=== PATIENT | male | born 1980 | race African-American/Black ===

== ENCOUNTER 2016-12-28 11:56 | Emergency (ER) | payer OTHER | END 2016-12-28 13:00 | disposition home or self-care (01) | LOC: ER 11:56 | PROC: 0H9CXZZ Drainage of Left Upper Arm Skin, External Approach (ICD-10-PCS; principal; 2016-12-28) | DX: L02.412 Cutaneous abscess of left axilla (principal); F17.200 Nicotine dependence, unspecified, uncomplicated; Z88.5 Allergy status to narcotic agent; Z88.8 Allergy status to other drugs, medicaments and biological substances | CPT/HCPCS: 99283 ==